=== PATIENT | female | born 1985 | race African-American/Black ===

== ENCOUNTER 2016-06-27 15:06 | Emergency (ER) | payer OTHER ==
[~2016-06-27] VITALS: Ht 162.6 cm; Wt 76.9 kg
[2016-06-27] MEDS ORDERED: MOTRIN600 MG PO (16:15)
[2016-06-27] MEDS ORDERED: FLEXERIL5 MG PO (16:15)
[2016-06-27 16:33] VITALS: BP 131/75
== END 2016-06-27 16:42 | disposition home or self-care (01) ==
LOC: EDBD 15:06 → EME 15:06
DX: S39.012A Strain of muscle, fascia and tendon of lower back, initial encounter (principal); V99.XXXA Unspecified transport accident, initial encounter
CPT/HCPCS: 99281; 99284